=== PATIENT | male | born 1955 | race Caucasian/White ===

== ENCOUNTER → 2023-10-23 15:11 | Outpatient (REF) | payer MEDICARE, BC, SELFPAY | LOC: RAD 15:11 | PROVIDERS: ATTENDING PHYSICIAN Nurse Practitioner Adult Health | DX: Z13.6 Encounter for screening for cardiovascular disorders (principal) | CPT/HCPCS: 76770 ==

== ENCOUNTER → 2024-06-16 10:48 | Outpatient (REF) | payer MEDICARE, BC, SELFPAY | LOC: DHVS 10:48 | PROVIDERS: ATTENDING PHYSICIAN Surgery Vascular Surgery; FAMILY PHYSICIAN Nurse Practitioner Adult Health | DX: I77.1 Stricture of artery (principal) | CPT/HCPCS: 93922; 93925 ==

== ENCOUNTER → 2024-06-18 06:25 | Day surgery (SDC) | payer MEDICARE, BC, SELFPAY | LOC: GI 06:25 | PROVIDERS: ATTENDING PHYSICIAN Internal Medicine | DX: K57.30 Diverticulosis of large intestine without perforation or abscess without bleeding (principal); K51.50 Left sided colitis without complications; K64.4 Residual hemorrhoidal skin tags; K63.5 Polyp of colon | CPT/HCPCS: 45380; 88305 ==

== ENCOUNTER → 2025-07-23 06:51 | Outpatient (REF) | payer MEDICARE, BC, SELFPAY | LOC: RAD 06:51 | PROVIDERS: ATTENDING PHYSICIAN Registered Nurse; FAMILY PHYSICIAN Nurse Practitioner Adult Health | DX: I77.1 Stricture of artery (principal) | CPT/HCPCS: 93922; 93978 ==